=== PATIENT | female | born 1990 | race Caucasian/White ===

== ENCOUNTER 2017-08-03 11:03 | Emergency (ER) | payer OTHER ==
[~2017-08-03] VITALS: Ht 172.7 cm; Wt 95.3 kg
[~2017-08-03 11:03] MED LIST: ALBUTEROL INHAL17 GM IH; AUGMENTIN 875875 MG PO; CIPROFLOXACIN500 M1 PO; KEFLEX500 MG PO; NOHOMEMEDICATIONS; NORCO 5-325 TA1 EACH PO; PHENERGAN 25 MG25 M1 PO; PREDNISONE 20 M20 MG PO; PROMETRIUM PO; TESSALON200 MG PO; TUMS CHEWA500 MG/11; prenatal
[2017-08-03 11:44] LABS: INFLUENZA B ANTIGEN None Detected (None Detect)
[2017-08-03 11:50] LABS: ABSOLUTE LYMPHOCYTES 0.6 thou/uL (0.8-5.3); ABSOLUTE MONOCYTES 0.4 thou/uL (0.0-1.2); ABSOLUTE NEUTROPHILS 2.8 thou/uL (1.6-8.1); BASOPHILS 0.8 %; EOSINOPHILS 0.1 %; HEMATOCRIT 40.5 % (37.0-47.0); HEMOGLOBIN 13.6 gm/dL (12.0-15.0); LYMPHOCYTES 16.4 %; MCH 27.3 pg (26.0-34.0); MCHC 33.5 g/dL (28.0-37.0); MCV 81.5 fL (80.0-100.0); MONOCYTES 11.1 %; MPV 9.1 fl. (7.2-11.1); NUCLEATED RBCS 0 /100WBC; PLATELET COUNT* 168 thou/uL (150-400); POLYS 71.6 %; RBC 4.97 mil/uL (4.20-5.00); RDW-CV 13.6 % (10.5-14.5); WBC 3.8 thou/uL (4.0-11.0)
[2017-08-03 12:00] LABS: CALCIUM 8.7 mg/dL (8.5-10.1); CREATININE 0.9 mg/dL (0.6-1.3); POTASSIUM 3.9 mmol/L (3.5-5.1)
[2017-08-03 12:05] LABS: ALBUMIN 3.6 g/dL (3.4-5.0); TOTAL BILIRUBIN 0.3 mg/dL (<0.1-1.0); TOTAL PROTEIN 7.5 g/dL (6.4-8.2)
[2017-08-03] MEDS ORDERED: PROAIR HFA8.5 GM INH (13:38)
[2017-08-03 14:01] VITALS: BP 128/76
== END 2017-08-03 14:02 | disposition home or self-care (01) ==
LOC: M.ERS 11:03
PROVIDERS: Nurse Practitioner Family
DX: J11.1 Influenza due to unidentified influenza virus with other respiratory manifestations (principal)